=== PATIENT | male | born 1970 | race Two or more races ===

== ENCOUNTER 2022-08-27 12:58 | Emergency (ER) | payer OTHER ==
[~2022-08-27] VITALS: Ht 172.7 cm; Wt 83.9 kg
== END 2022-08-27 18:36 | disposition home or self-care (01) ==
LOC: ER 12:58
DX: R51.9 Headache, unspecified (principal); Z88.0 Allergy status to penicillin; Z88.6 Allergy status to analgesic agent; Z20.822 Contact with and (suspected) exposure to COVID-19